=== PATIENT | male | born 1995 | race Two or more races ===

== ENCOUNTER 2024-09-05 22:29 | Emergency (ER) | payer BC ==
[~2024-09-05] VITALS: Ht 177.8 cm; Wt 83.9 kg
[2024-09-05] MEDS ORDERED: HYDROCODONE/APAP 5/325MG TABLET ONE (22:55)
[2024-09-05] MEDS: HYDROCODONE/APAP 5/325MG TABLET PO ONE (22:59)
[2024-09-05 23:23] VITALS: BP 132/77; TEMP 98.2; O2SAT 98
== END 2024-09-05 23:24 | disposition home or self-care (01) ==
LOC: ER 22:35
DX: S00.03XA Contusion of scalp, initial encounter (principal); Z60.2 Problems related to living alone; Y04.0XXA Assault by unarmed brawl or fight, initial encounter; Y93.89 Activity, other specified; Y92.89 Other specified places as the place of occurrence of the external cause; Y99.8 Other external cause status
CPT/HCPCS: 70450-TC